=== PATIENT | female | born 1990 | race Caucasian/White ===

== ENCOUNTER 2022-07-31 18:25 | Emergency (ER) | payer SELFPAY ==
[~2022-07-31] VITALS: Ht 165.1 cm; Wt 72.0 kg
[2022-07-31 18:51] VITALS: BP 118/72
[2022-07-31] MEDS ORDERED: IBUP-2029 MT (21:50)
== END 2022-07-31 22:24 | disposition home or self-care (01) ==
LOC: ER 18:25
DX: S00.83XA Contusion of other part of head, initial encounter (principal); Z90.49 Acquired absence of other specified parts of digestive tract; X58.XXXA Exposure to other specified factors, initial encounter; Y93.89 Activity, other specified; Y92.89 Other specified places as the place of occurrence of the external cause; Y99.8 Other external cause status
CPT/HCPCS: 99282